=== PATIENT | female | born 1965 | race Caucasian/White ===

== ENCOUNTER 2018-04-10 06:31 | Day surgery (SDC) | payer OTHER, MEDICAID ==
[2018-04-10] MEDS ORDERED: SOD CHLORIDE 0.9% 1,000 ML IV (08:00)
[2018-04-10] MEDS ORDERED: GLYCOPYRROLATE 0.4 MG INJ (08:33)
[2018-04-10] MEDS ORDERED: ROCURONIUM 50 MG INJ (08:33)
[2018-04-10] MEDS ORDERED: PROPOFOL 20 ML (08:33)
[2018-04-10] MEDS ORDERED: CEFAZOLIN 1 GM INJ (08:33)
[2018-04-10] MEDS ORDERED: MIDAZOLAM 1 MG/ML 2 ML INJ (08:33)
[2018-04-10] MEDS ORDERED: FENTAnyl 50 MCG/ML VIAL (08:33)
[2018-04-10] MEDS ORDERED: NEOSTIGMINE 3 MG/3 ML SYRINGE (08:33)
[2018-04-10] MEDS ORDERED: DEXAMETHASONE 4 MG/ML 5 ML INJ (08:34)
[2018-04-10] MEDS ORDERED: ONDANSETRON 4 MG INJ (08:34)
[2018-04-10] MEDS ORDERED: ROPIVACAINE 0.5 % 30 ML VIAL (08:40)
[2018-04-10] MEDS ORDERED: DIPHENHYDRAMINE 50 MG INJ IV (09:30)
[2018-04-10] MEDS ORDERED: OXYCODONE/ACETAMINOPHEN (5/325) TAB PO ×2 (09:30)
[2018-04-10] MEDS ORDERED: EPHEDrine SULFATE 50 MG/5 ML SYG IV (09:30)
[2018-04-10] MEDS ORDERED: HYDROmorphONE 1 MG/5 ML IV SYRINGE IV ×2 (09:30)
[2018-04-10] MEDS ORDERED: TRIMETHOBENZAMIDE 100 MG/ML VIAL IM (09:30)
[2018-04-10] MEDS ORDERED: FENTAnyl 50 MCG/ML VIAL IV ×2 (09:30)
[2018-04-10] MEDS ORDERED: MIDAZOLAM 1 MG/ML 2 ML INJ IV (09:30)
[2018-04-10] MEDS ORDERED: LABETALOL HCL 20MG INJ IV (09:30)
[2018-04-10] MEDS ORDERED: hydrALAzine 20 MG INJ IV (09:30)
[2018-04-10] MEDS ORDERED: ALBUTEROL 0.083% (NEB) 2.5 MG/3 ML AMP HHN (09:30)
[2018-04-10] MEDS ORDERED: MEPERIDINE 25 MG INJ IV (09:30)
[2018-04-10] MEDS ORDERED: IPRATROPIUM (NEB) 0.5 MG/2.5 ML AMP HHN (09:30)
[2018-04-10] MEDS ORDERED: SUGAMMADEX SODIUM 200 MG/2 ML VIAL IV (10:02)
[2018-04-10] MEDS: FENTAnyl 50 MCG/ML VIAL IV ×2 (10:46→11:01)
[2018-04-10] MEDS: ONDANSETRON 4 MG INJ IV (10:46)
[2018-04-10] MEDS: HYDROmorphONE 1 MG/5 ML IV SYRINGE IV (10:55)
[2018-04-10] MEDS: HYDROCODONE/APAP (5/325) TAB PO (11:55)
== END 2018-04-10 12:11 | disposition home or self-care (01) ==
LOC: SDS 06:31
DX: K80.10 Calculus of gallbladder with chronic cholecystitis without obstruction (principal); E03.9 Hypothyroidism, unspecified; E66.01 Morbid (severe) obesity due to excess calories; Z68.41 Body mass index [BMI] 40.0-44.9, adult
CPT/HCPCS: 47562; 84703; 88304

== ENCOUNTER 2018-07-03 06:03 | Inpatient (IN) | payer OTHER ==
[2018-07-03] MEDS: CLINDAMYCIN 600 MG/D5W (PMX) 50 ML IVPB ×3 (06:00→18:07)
[2018-07-03] MEDS: SOD CHLORIDE 0.9% 1,000 ML IV ×4 (06:30→18:18)
[2018-07-03 07:19] LABS: ADD MAN DIFF? NO
[2018-07-03 07:25] LABS: WHITE BLOOD COUNT 7.8 10^3/ul (4.8-10.8)
[2018-07-03 07:25] LABS: BASOPHILS % 0.5 % (0.0-2.0); EOSINOPHILS # 0.2 10^3/ul (0.0-0.5); EOSINOPHILS % 2.1 % (0.0-7.0); HEMATOCRIT 41.4 % (37.0-47.0); HEMOGLOBIN 13.2 g/dl (12.0-16.0); LYMPHOCYTES # 2.3 10^3/ul (0.8-2.9); MEAN CORPUSCULAR HEMOGLOBIN 27.7 pg (29.0-33.0); MEAN CORPUSCULAR HGB CONC 31.9 g/dl (32.0-37.0); MEAN PLATELET VOLUME 9.5 fl (7.4-10.4); MONOCYTE # 0.6 10^3/ul (0.3-0.9); MONOCYTES % 7.8 % (0.0-11.0); NEUTROPHIL # 4.7 10^3/ul (1.6-7.5); NEUTROPHILS % 60.2 % (39.0-77.0); PLATELET COUNT 294 10^3/UL (140-415); RED BLOOD COUNT 4.76 10^6/ul (4.20-5.40); RED CELL DISTRIBUTION WIDTH 13.3 % (11.5-14.5)
[2018-07-03] MEDS ORDERED: MIDAZOLAM 1 MG/ML 2 ML INJ (07:34)
[2018-07-03 07:44] LABS: INR 0.89; PROTIME 12.1 Sec (11.9-14.9); PT RATIO 0.9
[2018-07-03 07:45] LABS: PARTIAL THROMBOPLASTIN TIME 28.3 Sec (23.0-35.0)
[2018-07-03] MEDS: BUPIVACAINE 0.25% (MPF) 30 ML INJ (07:48)
[2018-07-03 07:53] LABS: ANION GAP 7 (5-13); BLOOD UREA NITROGEN 12 mg/dl (7-20); CALCIUM 9.8 mg/dl (8.4-10.2); CARBON DIOXIDE 30 mmol/L (21-31); CHLORIDE 108 mmol/L (97-110); CREATININE 0.64 mg/dl (0.44-1.00); Estimated GFR > 60 mL/min (>60); GLUCOSE 95 mg/dl (70-220); POTASSIUM 4.1 mmol/L (3.5-5.1)
[2018-07-03 07:59] LABS: SODIUM 145 mmol/L (135-144)
[2018-07-03] MEDS ORDERED: LIDOCAINE 2% (SDV) 5 ML INJ (08:05)
[2018-07-03] MEDS ORDERED: ETOMIDATE 20 MG INJ (08:05)
[2018-07-03] MEDS ORDERED: CEFAZOLIN 1 GM INJ ×2 (08:05)
[2018-07-03] MEDS ORDERED: PROPOFOL 20 ML (08:05)
[2018-07-03] MEDS ORDERED: ONDANSETRON 4 MG INJ ×2 (08:06→08:38)
[2018-07-03] MEDS ORDERED: MEPERIDINE 25 MG INJ IV (08:30)
[2018-07-03] MEDS ORDERED: FENTAnyl 50 MCG/ML VIAL IV (08:30)
[2018-07-03] MEDS ORDERED: HYDROmorphONE 1 MG/5 ML IV SYRINGE IV ×2 (08:30→08:38)
[2018-07-03] MEDS ORDERED: KETOROLAC 30 MG INJ IV (08:30)
[2018-07-03] MEDS ORDERED: METOCLOPRAMIDE 10 MG INJ IV (08:30)
[2018-07-03] MEDS ORDERED: DIPHENHYDRAMINE 50 MG INJ IV (08:30)
[2018-07-03] MEDS: ONDANSETRON 4 MG INJ IV (08:55)
[2018-07-03] MEDS: HYDROmorphONE 1 MG/5 ML IV SYRINGE IV (08:55)
[2018-07-03] MEDS: HYDROCODONE/APAP (5/325) TAB PO (09:05)
[2018-07-03] MEDS: KETOROLAC 30 MG INJ IV ×2 (09:53→18:10)
[2018-07-03] MEDS: morphine 2 MG INJ IV ×2 (11:51→22:48)
[2018-07-04] MEDS: CLINDAMYCIN 600 MG/D5W (PMX) 50 ML IVPB ×2 (00:43→04:56)
[2018-07-04] MEDS: KETOROLAC 30 MG INJ IV ×3 (00:44→18:27)
[2018-07-04] MEDS: morphine 2 MG INJ IV (04:53)
[2018-07-04] MEDS: SOD CHLORIDE 0.9% 1,000 ML IV (04:53)
[2018-07-04 05:43] LABS: ADD MAN DIFF? NO
[2018-07-04 05:56] LABS: BASOPHILS % 0.6 % (0.0-2.0); EOSINOPHILS # 0.1 10^3/ul (0.0-0.5); EOSINOPHILS % 1.7 % (0.0-7.0); HEMATOCRIT 37.3 % (37.0-47.0); HEMOGLOBIN 11.9 g/dl (12.0-16.0); LYMPHOCYTES # 2.4 10^3/ul (0.8-2.9); LYMPHOCYTES % 36.4 % (15.0-51.0); MEAN CORPUSCULAR HEMOGLOBIN 28.2 pg (29.0-33.0); MEAN CORPUSCULAR HGB CONC 31.9 g/dl (32.0-37.0); MEAN CORPUSCULAR VOLUME 88.4 fl (82.0-101.0); MEAN PLATELET VOLUME 9.5 fl (7.4-10.4); MONOCYTE # 0.4 10^3/ul (0.3-0.9); MONOCYTES % 6.6 % (0.0-11.0); NEUTROPHIL # 3.5 10^3/ul (1.6-7.5); NEUTROPHILS % 54.4 % (39.0-77.0); PLATELET COUNT 280 10^3/UL (140-415); RED BLOOD COUNT 4.22 10^6/ul (4.20-5.40); RED CELL DISTRIBUTION WIDTH 13.3 % (11.5-14.5)
[2018-07-04 05:56] LABS: WHITE BLOOD COUNT 6.5 10^3/ul (4.8-10.8)
[2018-07-04] MEDS: HYDROCODONE/APAP (5/325) TAB PO (22:45)
[2018-07-05] MEDS: KETOROLAC 30 MG INJ IV (09:12)
[2018-07-05] MEDS: HYDROCODONE/APAP (5/325) TAB PO (17:46)
== END 2018-07-05 17:52 | disposition home or self-care (01) | DRG 577 ==
LOC: SDS 06:03 → REC 08:08 → MS1 09:17
PROC: 0HB7XZZ Excision of Abdomen Skin, External Approach (ICD-10-PCS; principal; 2018-07-03 07:26)
PROC: 0HX7XZZ Transfer Abdomen Skin, External Approach (ICD-10-PCS; 2018-07-03 07:26)
DX: R22.2 Localized swelling, mass and lump, trunk (principal); Z68.41 Body mass index [BMI] 40.0-44.9, adult; E66.01 Morbid (severe) obesity due to excess calories; E03.9 Hypothyroidism, unspecified; G89.18 Other acute postprocedural pain
CPT/HCPCS: 80048; 85025; 85610; 85730; 88307; 99217